=== PATIENT | male | born 1980 | race Hispanic/Latino ===

== ENCOUNTER 2021-04-02 01:15 | Inpatient (IN) | payer OTHER ==
[~2021-04-02] VITALS: Ht 177.8 cm; Wt 140.4 kg
[2021-04-02] VITALS (10 sets, daily range): BP systolic 103–145; BP diastolic 64–91
[2021-04-02] MEDS ORDERED: ACETAMINOPHEN 500 MG TABLET PO ONE (01:30)
[2021-04-02 02:03] LABS: ABG BASE EXCESS -2.6 mmol/L (-2.0-3.0); ABG HCO3 20.9 mmol/L (21.0-28.0); ABG OXYGEN SATURATION 91.4 % (95.0-99.0); ABG PCO2 33 mmHg (35-48)
[2021-04-02 02:48] LABS: BASOPHILS % (AUTO) 0.3 % (0.0-5.0); HEMATOCRIT 44.6 % (42-54); LYMPHOCYTES % (AUTO) 28.9 % (21.0-51.0); MEAN CORPUSCULAR HEMOGLOBIN 26.2 pg (27.0-33.0); MEAN CORPUSCULAR HGB CONC 31.8 g/dL (32.0-36.0); MEAN CORPUSCULAR VOLUME 82.1 fL (79-99); MONOCYTES % (AUTO) 15.3 % (3.0-13.0); NEUTROPHILS % (AUTO) 55.2 % (40.0-77.0); PLATELET COUNT (AUTO) 141 K/uL (130-400); RED BLOOD CELL COUNT(AUTO) 5.43 MIL/uL (4.50-6.20); RED CELL DISTRIBUTION WIDTH 14.6 % (11.0-15.5); WHITE BLOOD COUNT (AUTO) 3.1 K/uL (4.8-10.8)
[2021-04-02 02:49] LABS: APPEARANCE,URINE Clear (CLEAR); BILIRUBIN,URINE Negative (NEGATIVE); COLOR,URINE Dark Yellow (YELLOW); GLUCOSE, URINE (UA) Negative (NEGATIVE); KETONES,URINE 15 mg/dL (NEGATIVE); LEUKOCYTE ESTERASE ,URINE Negative (NEGATIVE); NITRATE,URINE Negative (NEGATIVE); OCCULT BLOOD,URINE Negative (NEGATIVE); PH,URINE 5.5 (5.0-8.0); PROTEIN,URINE POS 1+ mg/dL (NEGATIVE)
[2021-04-02 02:59] LABS: POTASSIUM 3.7 mmol/L (3.5-5.1)
[2021-04-02 03:04] LABS: ALBUMIN 3.4 g/dL (3.5-5.0); BILIRUBIN,TOTAL 0.4 mg/dL (0.2-1.0); CRP QUANTITATIVE 15.3 mg/L (0.00-9.0); TOTAL PROTEIN, SERUM 7.7 g/dL (6.0-8.3)
[2021-04-02 03:18] LABS: BACTERIA,URINE Few /HPF (None Seen); RBC,URINE None Seen /HPF (0-1); SQUAMOUS EPITHELIAL CELL,UR 0-2 /HPF (0-2); WBC,URINE None Seen /HPF (0-1)
[2021-04-02 03:52] LABS: ERYTHROCYTE SEDIMENTATION RATE 10 MM/HR (0-15)
[2021-04-02] MEDS ORDERED: CEFTRIAXONE 1G VIAL IVP SCH (05:00)
[2021-04-02] MEDS ORDERED: ERGOCALCIFEROL (VITAMIN D2) 50,000 UNIT CAPSULE PO ONE (05:00)
[2021-04-02] MEDS ORDERED: ONDANSETRON 4MG INJ IV PRN (05:00)
[2021-04-02] MEDS ORDERED: PHARMACY COMMUNICATION MISC SCH (05:00)
[2021-04-02] MEDS ORDERED: ACETAMINOPHEN 325 MG TAB PO PRN (05:00)
[2021-04-02] MEDS: DOXYCYCLINE 100MG+NS 250ML IV SCH ×2 (05:15→18:08)
[2021-04-02] MEDS: DEXAMETHASONE SOD PHOSPHATE 4 MG/ML 1ML VIAL IVP SCH (05:15)
[2021-04-02] MEDS: FAMOTIDINE 20MG VIAL IV SCH ×2 (09:10→20:41)
[2021-04-02] MEDS: ENOXAPARIN SODIUM 40 MG/0.4 ML SYRINGE SQ SCH (09:10)
[2021-04-02] MEDS: ASCORBIC ACID 500 MG TAB PO SCH (09:10)
[2021-04-02] MEDS: ZINC SULFATE 220 CAPSULE PO SCH (09:10)
[2021-04-02] MEDS: ACETYLCYSTEINE 600 MG CAPSULE PO SCH ×2 (09:10→20:41)
[2021-04-03] VITALS (11 sets, daily range): BP systolic 104–126; BP diastolic 60–89
[2021-04-03] MEDS: DEXAMETHASONE SOD PHOSPHATE 4 MG/ML 1ML VIAL IVP SCH (05:46)
[2021-04-03] MEDS: DOXYCYCLINE 100MG+NS 250ML IV SCH ×2 (05:55→17:00)
[2021-04-03] MEDS: GUAIFENESIN-DM 200/20 MG 10 ML PO PRN (06:10)
[2021-04-03 07:11] LABS: BASOPHILS % (AUTO) 0.2 % (0.0-5.0); LYMPHOCYTES % (AUTO) 26.2 % (21.0-51.0); MEAN CORPUSCULAR HGB CONC 31.1 g/dL (32.0-36.0); MEAN CORPUSCULAR VOLUME 83.6 fL (79-99); MONOCYTES % (AUTO) 10.1 % (3.0-13.0); NEUTROPHILS % (AUTO) 62.8 % (40.0-77.0); PLATELET COUNT (AUTO) 173 K/uL (130-400); RED CELL DISTRIBUTION WIDTH 14.1 % (11.0-15.5); WHITE BLOOD COUNT (AUTO) 4.1 K/uL (4.8-10.8)
[2021-04-03 07:48] LABS: ALBUMIN 3.2 g/dL (3.5-5.0); BILIRUBIN,TOTAL 0.4 mg/dL (0.2-1.0); CREATININE 0.9 mg/dL (0.5-1.5); CRP QUANTITATIVE 5.3 mg/L (0.00-9.0); POTASSIUM 3.8 mmol/L (3.5-5.1); TOTAL PROTEIN, SERUM 7.6 g/dL (6.0-8.3)
[2021-04-03] MEDS: ACETYLCYSTEINE 600 MG CAPSULE PO SCH ×2 (09:00→20:56)
[2021-04-03] MEDS: ASCORBIC ACID 500 MG TAB PO SCH (09:00)
[2021-04-03] MEDS: ZINC SULFATE 220 CAPSULE PO SCH (09:00)
[2021-04-03] MEDS: ENOXAPARIN SODIUM 40 MG/0.4 ML SYRINGE SQ SCH (09:00)
[2021-04-03] MEDS ORDERED: PHARMACY COMMUNICATION MISC SCH (10:00)
[2021-04-03] MEDS: PANTOPRAZOLE 40 MG TAB DR PO SCH (11:27)
[2021-04-03] MEDS ORDERED: REMDESIVIR (EUA) 520 200 MG in 0.9% NACL 250ML 250 ML IV ONE (14:00)
[2021-04-03] MEDS ORDERED: COMPOUND IV REFRIGERATED 1 EACH IVSOLN MISC PRN (14:00)
[2021-04-03] MEDS ORDERED: 0.9%NACL 1000ML 1,000 ML IV ONE (15:17)
[2021-04-03] MEDS: ACETAMINOPHEN 325 MG TAB PO PRN (22:29)
[2021-04-04] MEDS: DEXAMETHASONE SOD PHOSPHATE 4 MG/ML 1ML VIAL IVP SCH (03:44)
[2021-04-04] MEDS: GUAIFENESIN-DM 200/20 MG 10 ML PO PRN (03:44)
[2021-04-04] MEDS: DOXYCYCLINE 100MG+NS 250ML IV SCH ×2 (03:44→17:27)
[2021-04-04] MEDS: ACETAMINOPHEN 325 MG TAB PO PRN (03:45)
[2021-04-04 04:18] LABS: HEMATOCRIT 43.4 % (42-54); MEAN CORPUSCULAR HEMOGLOBIN 26.5 pg (27.0-33.0); MEAN CORPUSCULAR HGB CONC 32.5 g/dL (32.0-36.0); MEAN CORPUSCULAR VOLUME 81.6 fL (79-99); MONOCYTES % (AUTO) 10.4 % (3.0-13.0); PLATELET COUNT (AUTO) 157 K/uL (130-400); RED BLOOD CELL COUNT(AUTO) 5.32 MIL/uL (4.50-6.20); RED CELL DISTRIBUTION WIDTH 14.3 % (11.0-15.5); WHITE BLOOD COUNT (AUTO) 3.6 K/uL (4.8-10.8)
[2021-04-04 04:25] VITALS: BP 126/61
[2021-04-04 04:45] LABS: ALBUMIN 3.2 g/dL (3.5-5.0); BILIRUBIN,TOTAL 0.7 mg/dL (0.2-1.0); CRP QUANTITATIVE 7.6 mg/L (0.00-9.0); POTASSIUM 4.2 mmol/L (3.5-5.1); TOTAL PROTEIN, SERUM 7.5 g/dL (6.0-8.3)
[2021-04-04] MEDS: REMDESIVIR LABS MISC SCH (05:48)
[2021-04-04 08:00] VITALS: BP 113/48
[2021-04-04] MEDS: PANTOPRAZOLE 40 MG TAB DR PO SCH (09:13)
[2021-04-04] MEDS: ACETYLCYSTEINE 600 MG CAPSULE PO SCH (09:13)
[2021-04-04] MEDS: ENOXAPARIN SODIUM 40 MG/0.4 ML SYRINGE SQ SCH (09:13)
[2021-04-04] MEDS: ASCORBIC ACID 500 MG TAB PO SCH (09:13)
[2021-04-04] MEDS: ZINC SULFATE 220 CAPSULE PO SCH (09:13)
[2021-04-04 11:00] VITALS: BP 106/61
[2021-04-04] MEDS: REMDESIVIR (EUA) 520 100 MG in 0.9% NACL 250ML 250 ML IV SCH (14:22)
[2021-04-04 16:00] VITALS: BP 91/56
[2021-04-04 20:02] VITALS: BP 112/64
[2021-04-04 23:34] VITALS: BP 116/57
[2021-04-05] MEDS: GUAIFENESIN-DM 200/20 MG 10 ML PO PRN ×2 (04:11→18:28)
[2021-04-05] MEDS: DEXAMETHASONE SOD PHOSPHATE 4 MG/ML 1ML VIAL IVP SCH (04:18)
[2021-04-05] MEDS: DOXYCYCLINE 100MG+NS 250ML IV SCH (04:18)
[2021-04-05 04:35] VITALS: BP 99/66
[2021-04-05] MEDS: REMDESIVIR LABS MISC SCH (04:44)
[2021-04-05 05:06] LABS: BASOPHILS % (AUTO) 0.3 % (0.0-5.0); HEMATOCRIT 42.4 % (42-54); LYMPHOCYTES % (AUTO) 26.9 % (21.0-51.0); MEAN CORPUSCULAR HEMOGLOBIN 25.7 pg (27.0-33.0); MEAN CORPUSCULAR HGB CONC 31.4 g/dL (32.0-36.0); MONOCYTES % (AUTO) 10.4 % (3.0-13.0); NEUTROPHILS % (AUTO) 61.9 % (40.0-77.0); PLATELET COUNT (AUTO) 171 K/uL (130-400); RED BLOOD CELL COUNT(AUTO) 5.17 MIL/uL (4.50-6.20); RED CELL DISTRIBUTION WIDTH 14.3 % (11.0-15.5); WHITE BLOOD COUNT (AUTO) 3.8 K/uL (4.8-10.8)
[2021-04-05 05:14] LABS: ALBUMIN 2.8 g/dL (3.5-5.0); BILIRUBIN,TOTAL 0.4 mg/dL (0.2-1.0); CREATININE 0.9 mg/dL (0.5-1.5); CRP QUANTITATIVE 14.8 mg/L (0.00-9.0); POTASSIUM 3.7 mmol/L (3.5-5.1); TOTAL PROTEIN, SERUM 6.8 g/dL (6.0-8.3)
[2021-04-05 08:30] VITALS: BP 105/60
[2021-04-05] MEDS: PANTOPRAZOLE 40 MG TAB DR PO SCH (09:37)
[2021-04-05] MEDS: ENOXAPARIN SODIUM 40 MG/0.4 ML SYRINGE SQ SCH (09:41)
[2021-04-05] MEDS ORDERED: PHARMACY COMMUNICATION MISC SCH (10:00)
[2021-04-05 12:15] VITALS: BP 114/53
[2021-04-05] MEDS: BARICITINIB (EUA) 2 MG TABLET PO SCH (15:10)
[2021-04-05] MEDS: REMDESIVIR (EUA) 520 100 MG in 0.9% NACL 250ML 250 ML IV SCH (15:11)
[2021-04-05 16:12] VITALS: BP 105/44
[2021-04-05 20:08] VITALS: BP 106/53
[2021-04-06 00:12] VITALS: BP 105/52
[2021-04-06 04:17] VITALS: BP 100/50
[2021-04-06] MEDS: BUDESONIDE 0.5 MG/2 ML INH IH SCH (05:16)
[2021-04-06] MEDS: DEXAMETHASONE SOD PHOSPHATE 4 MG/ML 1ML VIAL IVP SCH (05:27)
[2021-04-06 05:49] LABS: CREATININE 0.8 mg/dL (0.5-1.5); CRP QUANTITATIVE 13.7 mg/L (0.00-9.0); POTASSIUM 3.8 mmol/L (3.5-5.1)
[2021-04-06] MEDS: REMDESIVIR LABS MISC SCH (06:00)
[2021-04-06 07:16] VITALS: BP 106/61
[2021-04-06] MEDS: BARICITINIB (EUA) 2 MG TABLET PO SCH (08:23)
[2021-04-06] MEDS: PANTOPRAZOLE 40 MG TAB DR PO SCH (08:23)
[2021-04-06] MEDS: ENOXAPARIN SODIUM 40 MG/0.4 ML SYRINGE SQ SCH (08:25)
[2021-04-06] MEDS: GUAIFENESIN-DM 200/20 MG 10 ML PO PRN ×3 (08:38→19:47)
[2021-04-06 12:21] LABS: ALBUMIN 2.9 g/dL (3.5-5.0); BILIRUBIN,DIRECT 0.1 mg/dL (0.0-0.3); BILIRUBIN,TOTAL 0.4 mg/dL (0.2-1.0); TOTAL PROTEIN, SERUM 6.5 g/dL (6.0-8.3)
[2021-04-06 12:44] VITALS: BP 101/62
[2021-04-06] MEDS: REMDESIVIR (EUA) 520 100 MG in 0.9% NACL 250ML 250 ML IV SCH (14:45)
[2021-04-06 15:20] VITALS: BP 114/66
[2021-04-06] MEDS: ACETYLCYSTEINE 10% 100MG/ML 4ML VIAL IH SCH (18:00)
[2021-04-06 20:30] VITALS: BP 113/58
[2021-04-07 00:05] VITALS: BP 120/59
[2021-04-07] MEDS: REMDESIVIR LABS MISC SCH (02:07)
[2021-04-07] MEDS: GUAIFENESIN-DM 200/20 MG 10 ML PO PRN ×5 (02:07→19:46)
[2021-04-07] MEDS: DEXAMETHASONE SOD PHOSPHATE 4 MG/ML 1ML VIAL IVP SCH (04:31)
[2021-04-07 04:53] VITALS: BP 105/60
[2021-04-07 05:17] LABS: ALBUMIN 2.8 g/dL (3.5-5.0); BILIRUBIN,TOTAL 0.5 mg/dL (0.2-1.0); CREATININE 0.7 mg/dL (0.5-1.5); CRP QUANTITATIVE 9.9 mg/L (0.00-9.0); POTASSIUM 3.8 mmol/L (3.5-5.1); TOTAL PROTEIN, SERUM 6.8 g/dL (6.0-8.3)
[2021-04-07] MEDS: BUDESONIDE 0.5 MG/2 ML INH IH SCH (05:20)
[2021-04-07] MEDS: ACETYLCYSTEINE 10% 100MG/ML 4ML VIAL IH SCH (05:20)
[2021-04-07 08:06] VITALS: BP 122/69
[2021-04-07] MEDS: PANTOPRAZOLE 40 MG TAB DR PO SCH (09:28)
[2021-04-07] MEDS: BARICITINIB (EUA) 2 MG TABLET PO SCH (09:28)
[2021-04-07] MEDS: ENOXAPARIN SODIUM 40 MG/0.4 ML SYRINGE SQ SCH (09:29)
[2021-04-07 11:47] VITALS: BP 120/66
[2021-04-07] MEDS: REMDESIVIR (EUA) 520 100 MG in 0.9% NACL 250ML 250 ML IV SCH (15:28)
[2021-04-07 16:19] VITALS: BP 83/58
[2021-04-07] MEDS: BENZONATATE 100 MG CAPSULE PO PRN (19:46)
[2021-04-07 20:00] VITALS: BP 109/52
[2021-04-08] VITALS (7 sets, daily range): BP systolic 85–115; BP diastolic 41–70
[2021-04-08] MEDS: BENZONATATE 100 MG CAPSULE PO PRN ×2 (03:23→17:55)
[2021-04-08] MEDS: GUAIFENESIN-DM 200/20 MG 10 ML PO PRN ×3 (03:23→17:55)
[2021-04-08] MEDS: ACETYLCYSTEINE 10% 100MG/ML 4ML VIAL IH SCH ×2 (03:26→18:00)
[2021-04-08] MEDS: BUDESONIDE 0.5 MG/2 ML INH IH SCH ×2 (03:26→18:00)
[2021-04-08] MEDS: DEXAMETHASONE SOD PHOSPHATE 4 MG/ML 1ML VIAL IVP SCH (04:17)
[2021-04-08] MEDS: PANTOPRAZOLE 40 MG TAB DR PO SCH (09:10)
[2021-04-08] MEDS: ENOXAPARIN SODIUM 40 MG/0.4 ML SYRINGE SQ SCH (09:11)
[2021-04-08] MEDS: BARICITINIB (EUA) 2 MG TABLET PO SCH (09:11)
[2021-04-09] MEDS: BENZONATATE 100 MG CAPSULE PO PRN ×2 (00:40→13:25)
[2021-04-09] MEDS: GUAIFENESIN-DM 200/20 MG 10 ML PO PRN ×3 (00:40→13:25)
[2021-04-09 04:01] VITALS: BP 107/67
[2021-04-09] MEDS: DEXAMETHASONE SOD PHOSPHATE 4 MG/ML 1ML VIAL IVP SCH (04:03)
[2021-04-09] MEDS: BUDESONIDE 0.5 MG/2 ML INH IH SCH ×2 (06:00→18:00)
[2021-04-09] MEDS: ACETYLCYSTEINE 10% 100MG/ML 4ML VIAL IH SCH ×2 (06:00→18:00)
[2021-04-09 08:00] VITALS: BP 97/68
[2021-04-09] MEDS: ENOXAPARIN SODIUM 40 MG/0.4 ML SYRINGE SQ SCH (09:08)
[2021-04-09] MEDS: PANTOPRAZOLE 40 MG TAB DR PO SCH (09:08)
[2021-04-09] MEDS: BARICITINIB (EUA) 2 MG TABLET PO SCH (09:21)
[2021-04-09 12:00] VITALS: BP 123/68
[2021-04-09 16:00] VITALS: BP 112/63
[2021-04-09 20:18] VITALS: BP 111/56
[2021-04-09 23:36] VITALS: BP 121/70
[2021-04-10] MEDS: DEXAMETHASONE SOD PHOSPHATE 4 MG/ML 1ML VIAL IVP SCH (03:27)
[2021-04-10] MEDS: ACETYLCYSTEINE 10% 100MG/ML 4ML VIAL IH SCH (03:27)
[2021-04-10] MEDS: GUAIFENESIN-DM 200/20 MG 10 ML PO PRN (03:27)
[2021-04-10] MEDS: BUDESONIDE 0.5 MG/2 ML INH IH SCH (03:28)
[2021-04-10] MEDS: BENZONATATE 100 MG CAPSULE PO PRN (03:28)
[2021-04-10 04:00] VITALS: BP 119/56
[2021-04-10] MEDS: BARICITINIB (EUA) 2 MG TABLET PO SCH (08:51)
[2021-04-10] MEDS: PANTOPRAZOLE 40 MG TAB DR PO SCH (08:51)
[2021-04-10] MEDS: ENOXAPARIN SODIUM 40 MG/0.4 ML SYRINGE SQ SCH (08:52)
[2021-04-10 08:53] VITALS: BP 138/83
[2021-04-10 11:58] VITALS: BP 130/73
[2021-04-10 16:33] VITALS: BP 126/77
[2021-04-10 20:00] VITALS: BP 106/63
[2021-04-10 23:54] VITALS: BP 123/67
[2021-04-11 04:00] VITALS: BP 120/66
[2021-04-11] MEDS: DEXAMETHASONE SOD PHOSPHATE 4 MG/ML 1ML VIAL IVP SCH (05:21)
[2021-04-11] MEDS: BUDESONIDE 0.5 MG/2 ML INH IH SCH (06:00)
[2021-04-11] MEDS: ACETYLCYSTEINE 10% 100MG/ML 4ML VIAL IH SCH (06:00)
[2021-04-11 07:53] VITALS: BP 106/50
[2021-04-11] MEDS: PANTOPRAZOLE 40 MG TAB DR PO SCH (08:53)
[2021-04-11] MEDS: BARICITINIB (EUA) 2 MG TABLET PO SCH (08:54)
[2021-04-11] MEDS: ENOXAPARIN SODIUM 40 MG/0.4 ML SYRINGE SQ SCH (08:54)
[2021-04-11 12:19] VITALS: BP 103/73
[2021-04-11 16:00] VITALS: BP 109/68
[2021-04-12] MEDS ORDERED: DEXAMETHASONE 4 MG TAB PO SCH (09:00)
== END 2021-04-11 17:30 | disposition home or self-care (01) | DRG 871 ==
LOC: EDH 01:15 → EDHIP 01:16 → 4AH 04-03 22:43 → 2DH 04-11 06:13
PROVIDERS: ADMIT Hospitalist; ATTEND Hospitalist
PROC: XW033E5 Introduction of Remdesivir Anti-infective into Peripheral Vein, Percutaneous Approach, New Technology Group 5 (ICD-10-PCS; principal; 2021-04-03)
PROC: XW0DXM6 Introduction of Baricitinib into Mouth and Pharynx, External Approach, New Technology Group 6 (ICD-10-PCS; 2021-04-05)
DX: A41.89 Other specified sepsis (principal); U07.1 COVID-19; J96.01 Acute respiratory failure with hypoxia; J12.82 Pneumonia due to coronavirus disease 2019; Z68.41 Body mass index [BMI] 40.0-44.9, adult; M62.82 Rhabdomyolysis; E87.6 Hypokalemia; B97.89 Other viral agents as the cause of diseases classified elsewhere; E66.9 Obesity, unspecified; Z87.891 Personal history of nicotine dependence; Z88.0 Allergy status to penicillin
CPT/HCPCS: 36415; 36600; 71045; 80048; 80053; 80076; 81001; 82550; 82728; 82803; 83605; 83615; 84145; 84484; 85025; 85378; 85651; 86140; 87040; 87635; 87804; 93005; 94660; 94760; C9803; G0378; J1100; J1650; J2405; J3490; J7030; J7050